=== PATIENT | female | born 1970 | race Caucasian/White ===

== ENCOUNTER 2017-01-07 02:21 | Emergency (ER) | payer MEDICAID ==
[~2017-01-07] VITALS: Ht 165.1 cm; Wt 79.4 kg
[~2017-01-07 02:21] MED LIST: OMEP40CA33 PO
[2017-01-07 02:25] VITALS: BP_SYST 124
--- NOTE | 2017-01-07 02:30 | NUR ---
Patient to ER bed 04 to gown for evaluation. Side rails up. Report given to KODY Dean.
--- NOTE | 2017-01-07 02:35 | NUR ---
Patient is here b/c she started a new medication and feels like there are ants all over here body. No other s/s, will continue to monitor patient.
[2017-01-07] MEDS ORDERED: DIPHENHYDRAMINE INJ 50 MG/ML VIAL IM ONE (03:00)
--- NOTE | 2017-01-07 03:03 | NUR ---
ER at bedside examining patient.
[2017-01-07 04:00] VITALS: BP_SYST 118
--- NOTE | 2017-01-07 04:08 | NUR ---
Patient given written and verbal discharge instructions and verbalizes understanding. ER MD discussed with patient the results and treatment provided. Patient in stable condition. ID arm band removed. Patient educated on pain management and to follow up with PMD. Pain Scale 0/10. Opportunity for questions provided and answered.
== END 2017-01-07 04:00 | disposition home or self-care (01) ==
LOC: SED 02:21
DX: L29.9 Pruritus, unspecified (principal); T36.4X5A Adverse effect of tetracyclines, initial encounter; J45.909 Unspecified asthma, uncomplicated; K21.9 Gastro-esophageal reflux disease without esophagitis; I10 Essential (primary) hypertension; G51.0 Bell's palsy; Y92.9 Unspecified place or not applicable
CPT/HCPCS: 96372; 99283; J1200; J7030

== ENCOUNTER 2017-11-21 19:28 | Emergency (ER) | payer MEDICAID ==
[~2017-11-21] VITALS: Ht 162.6 cm; Wt 86.2 kg
[2017-11-21 19:32] VITALS: BP_SYST 129
--- NOTE | 2017-11-21 19:41 | NUR ---
Placed in room 03 . Placed on awake overnight monitor, blood pressure machine and pulse oximeter. To gown for exam. Side rails up. Report given to KODY Ho.
--- NOTE | 2017-11-21 19:47 | NUR ---
Patient AOx4, ambulatory, presents to ER with complaint of chest pressure radiating to intrascapular area and pain to right arm. Patient states no medical hx. Patient states she took 2 aspirins "because I got scared". VSS at this time.
--- NOTE | 2017-11-21 19:52 | NUR ---
ER MD Ziegler at bedside for medical evaluation.
[2017-11-21] MEDS ORDERED: NITROGLYCERIN 0.4 MG TAB.SUBL SL ONE (20:00)
[2017-11-21] MEDS ORDERED: ASPIRIN 325 MG TABLET PO ONE (20:00)
--- NOTE | 2017-11-21 20:05 | NUR ---
# 20 gauge angiocath placed to LAC. Use of asceptic technique. Opsite placed over site. Blood return noted. Blood for lab drawn from site. Flushed with 10 cc of normal saline. No evidence of infiltration noted. Patient tolerated well.
[2017-11-21 20:30] LABS: BASOPHILS % (AUTO) 0.2 % (0.0-2.0); EOSINOPHILS # (AUTO) 0.1 K/uL (0.0-0.4); HEMATOCRIT 35.5 % (36-48); HEMOGLOBIN 11.7 g/dL (12.0-16.0); LYMPHOCYTES # (AUTO) 2.3 K/uL (1.0-5.5); LYMPHOCYTES % (AUTO) 22.4 % (20.5-51.5); MEAN CORPUSCULAR HEMOGLOBIN 29 pg (27-31); MEAN CORPUSCULAR HGB CONC 33 % (32-36); MEAN CORPUSCULAR VOLUME 88 fL (79.0-98.0); MONOCYTES # (AUTO) 0.8 K/uL (0.0-1.0); MONOCYTES % (AUTO) 7.6 % (1.7-9.3); NEUTROPHILS % (AUTO) 68.8 % (40.0-70.0); PLATELET COUNT (AUTO) 229 K/uL (130-430); RED BLOOD CELL COUNT(AUTO) 4.03 MIL/uL (4.2-6.2); RED CELL DISTRIBUTION WIDTH 14.1 % (9.0-15.0); WHITE BLOOD COUNT (AUTO) 10.2 K/uL (4.8-10.8)
--- NOTE | 2017-11-21 20:30 | NUR ---
No adverse reactions noted after medication administration. Will continue to monitor.
[2017-11-21 20:39] LABS: CALCIUM 9.2 mg/dL (8.4-11.0); CREATININE 0.62 mg/dL (0.55-1.30); POTASSIUM 3.5 mmol/L (3.5-5.1)
[2017-11-21 20:44] LABS: PROTHROMBIN TIME 9.8 SECS (9.5-12.5)
[2017-11-21 20:45] LABS: ALBUMIN 3.8 g/dL (3.4-4.8); TOTAL BILIRUBIN 0.3 mg/dL (0.0-1.0)
[2017-11-21 20:51] LABS: BILIRUBIN,URINE NEGATIVE (NEGATIVE); BLOOD, URINE NEGATIVE (NEGATIVE); CLARITY/URINE CLEAR (CLEAR); COLOR,URINE YELLOW (YELLOW); GLUCOSE,URINE NEGATIVE (NEGATIVE); KETONES,URINE NEGATIVE (NEGATIVE); LEUKOCYTE ESTERASE ,URINE NEGATIVE (NEGATIVE); NITRITE, URINE NEGATIVE (NEGATIVE); PROTEIN URINE NEGATIVE (NEGATIVE); UROBILINOGEN,URINE 0.2 (0.2-1.0)
[2017-11-21 22:47] VITALS: BP_SYST 132
--- NOTE | 2017-11-21 22:47 | NUR ---
Patient given written and verbal discharge instructions and verbalizes understanding. ER MD discussed with patient the results and treatment provided. Patient in stable condition. ID arm band removed. IV catheter removed intact and dressing applied, no active bleeding. Rx of Tylenol, Robitussin, Zithromax given. Patient educated on pain management and to follow up with PMD. Pain Scale 0/10. Opportunity for questions provided and answered.
== END 2017-11-21 22:47 | disposition home or self-care (01) ==
LOC: SED 19:28
DX: J20.9 Acute bronchitis, unspecified (principal); R07.89 Other chest pain; K21.9 Gastro-esophageal reflux disease without esophagitis; I10 Essential (primary) hypertension; G51.0 Bell's palsy
CPT/HCPCS: 36415; 71045; 80053; 81003; 82550-TC; 83880; 84484; 85025; 85379; 85610-TC; 85730-TC; 93005; 99285